=== PATIENT | male | born 1950 | race Caucasian/White ===

== ENCOUNTER 2020-05-23 09:37 | Emergency (ER) | payer MEDICARE ==
[~2020-05-23] VITALS: Ht 180.3 cm; Wt 115.2 kg
[~2020-05-23 09:37] MED LIST: ACTOS45 MG PO; ALLOPURINOL300 MG PO; FOSINOPRIL SODI10 MG PO; FOSINOPRIL SODI40 MG PO; GLIMEPIRIDE4 MG PO; JANUVIA100 MG PO; JANUVIA25 MG PO; LORTAB 10-5001 EACH PO; LOVASTATIN10 MG PO; MELOXICAM15 MG PO; TEMAZEPAM30 MG PO; TRIAMTERENE-HCTZ1 EA
[2020-05-23] MEDS ORDERED: SODIUM CHLORIDE 0.9% 1000ML 1,000 ML IV STA (10:10)
[2020-05-23 10:59] LABS: BASOPHILS % 0.3 % (0.0-1.0); EOSINOPHILS % 0.1 % (0.0-6.0); HEMATOCRIT 43.3 % (38.2-49.6); HEMOGLOBIN 14.5 g/dL (14.0-18.0); LYMPHOCYTES # (AUTO) 0.7 (1.0-3.2); LYMPHOCYTES % 4.7 % (18.0-39.1); MEAN CORPUSCULAR HEMOGLOBIN 32.4 pg (28-32); MEAN CORPUSCULAR HGB CONC 33.5 g/dL (31-35); MEAN CORPUSCULAR VOLUME 96.7 fL (81-99); MONOCYTES # (AUTO) 1.6 (0.2-0.8); MONOCYTES % 11.5 % (4.4-11.3); NEUTROPHILS # (AUTO) 11.4 (2.1-6.9); PLATELET COUNT 182 x10e3/uL (140-360); RED BLOOD COUNT 4.48 x10e6/uL (4.3-5.7); RED CELL DISTRIBUTION WIDTH 13.4 % (11.7-14.4)
[2020-05-23 11:11] LABS: CLARITY,URINE CLEAR (CLEAR); COLOR,URINE YELLOW (YELLOW); KETONES,URINE 1+ (NEGATIVE); LEUKOCYTE ESTERASE ,URINE NEGATIVE (NEGATIVE); NITRITE,URINE NEGATIVE (NEGATIVE); PROTEIN,URINE DIPSTICK 1+ (NEGATIVE)
[2020-05-23 11:12] LABS: BACTERIA,URINE RARE /HPF; EPITHELIAL CELLS,URINE FEW /LPF; RBC,URINE 0-5 /HPF (0-5); URINE UROBILINOGEN 0.2 mg/dL (0.2 - 1); WBC,URINE (MAN) 0-5 /HPF (0-5)
[2020-05-23 11:15] LABS: AMPHETAMINES SCREEN,URINE NEGATIVE (NEGATIVE); BENZODIAZEPINES SCREEN,URINE NEGATIVE (NEGATIVE); PHENCYCLIDINE SCREEN,URINE NEGATIVE (NEGATIVE)
[2020-05-23 11:20] LABS: INR 0.91; PROTHROMBIN TIME 12.8 seconds (11.9-14.5)
[2020-05-23 11:21] LABS: PARTIAL THROMBOPLASTIN TIME 29.8 seconds (23.8-35.5)
[2020-05-23 11:31] LABS: ALBUMIN 3.8 g/dL (3.5-5.0); ALBUMIN/GLOBULIN RATIO 1.2 (0.8-2.0); ANION GAP 15.5 mmol/L (8-16); CREATININE, SERUM 1.49 mg/dL (0.72-1.25); MAGNESIUM 1.5 MG/DL (1.3-2.1); POTASSIUM 3.5 mmol/L (3.5-5.1)
[2020-05-23 11:43] LABS: CREATINE KINASE MB 0.9 ng/mL (0-5.0); THYROID STIMULATING HORMONE 0.571 uIU/mL (0.350-4.940)
[2020-05-23] MEDS ORDERED: LORAZEPAM INJ 2 MG/ML VIAL IV NR (11:45)
[2020-05-23] MEDS ORDERED: THIAMINE HCL INJ 100 MG/ML 2ML VIAL IV ONE (11:45)
[2020-05-23] MEDS ORDERED: HYDROCODONE/APAP 5MG-325MG TAB PO NR (12:59)
[2020-05-23] MEDS ORDERED: TYLENOL # 31 EA PO (13:44)
== END 2020-05-23 14:28 | disposition home or self-care (01) ==
LOC: ER 09:47
DX: S63.501A Unspecified sprain of right wrist, initial encounter (principal); W01.0XXA Fall on same level from slipping, tripping and stumbling without subsequent striking against object, initial encounter; Y93.01 Activity, walking, marching and hiking; Y92.008 Other place in unspecified non-institutional (private) residence as the place of occurrence of the external cause; R25.1 Tremor, unspecified; F10.20 Alcohol dependence, uncomplicated; Z11.52 Encounter for screening for COVID-19
CPT/HCPCS: 36415; 70450; 71045; 72125; 73110; 73130; 80053; 80307; 80320; 80329; 81001; 82140; 82550; 82553; 83735; 84443; 84484; 85025; 85610; 85730; 87040; 87086; 93005; 99284; J2060; J3411; J7030; U0002

== ENCOUNTER 2022-01-17 23:54 | Inpatient (IN) | payer MEDICARE ==
[~2022-01-17] VITALS: Ht 177.8 cm; Wt 99.8 kg
[~2022-01-17 23:54] MED LIST changes: +TYLENOL # 31 EA PO
[2022-01-18] MEDS ORDERED: ONDANSETRON HCL INJ 2MG/ML 2ML 2 MG/ML VIAL IV STA (00:07)
[2022-01-18] MEDS ORDERED: ASPIRIN 81 MG CHEW TAB PO ONE (00:15)
[2022-01-18] MEDS ORDERED: MULTIVITAMINS- 12 INJECTION 10 ML, FOLIC ACID MDV 1 MG, THIAMINE HCL INJ 100 MG in SODI... IV ONE (00:15)
[2022-01-18 00:26] LABS: BASOPHILS % 0.3 % (0.0-1.0); HEMATOCRIT 39.1 % (38.2-49.6); HEMOGLOBIN 13.1 g/dL (14.0-18.0); LYMPHOCYTES # (AUTO) 0.9 (1.0-3.2); LYMPHOCYTES % 8.6 % (18.0-39.1); MEAN CORPUSCULAR HEMOGLOBIN 30.6 pg (28-32); MEAN CORPUSCULAR HGB CONC 33.5 g/dL (31-35); MEAN CORPUSCULAR VOLUME 91.4 fL (81-99); MONOCYTES # (AUTO) 1.2 (0.2-0.8); MONOCYTES % 10.6 % (4.4-11.3); NEUTROPHILS # (AUTO) 8.8 (2.1-6.9); PLATELET COUNT 92 x10e3/uL (140-360); RED BLOOD COUNT 4.28 x10e6/uL (4.3-5.7); RED CELL DISTRIBUTION WIDTH 15.1 % (11.7-14.4)
[2022-01-18 00:47] LABS: CREATINE KINASE MB 29.2 ng/mL (0-5.0)
[2022-01-18 01:02] LABS: ALBUMIN 2.8 g/dL (3.5-5.0); ALBUMIN/GLOBULIN RATIO 0.7 (0.8-2.0); ANION GAP 21.9 mmol/L (8-16); CALCIUM 8.6 mg/dL (8.4-10.2); CREATININE, SERUM 2.55 mg/dL (0.72-1.25); POTASSIUM 3.9 mmol/L (3.5-5.1)
[2022-01-18] MEDS ORDERED: ONDANSETRON HCL INJ 2MG/ML 2ML 2 MG/ML VIAL IV PRN (01:15)
[2022-01-18] MEDS ORDERED: SODIUM CHLORIDE 0.9% 1000ML 1,000 ML IV SCH (01:15)
[2022-01-18] MEDS ORDERED: SODIUM CHLORIDE 0.9% 1000ML 1,000 ML IV ONE (01:15)
[2022-01-18] MEDS ORDERED: SODIUM CHLORIDE 0.9% 1000ML 1,000 ML ONE (01:22)
[2022-01-18 02:10] VITALS: BP 144/76
[2022-01-18 07:45] LABS: CREATINE KINASE MB 24.2 ng/mL (0-5.0)
[2022-01-18 08:08] VITALS: BP 151/85
[2022-01-18 08:51] VITALS: BP 151/85
[2022-01-18] MEDS ORDERED: CHLORDIAZEPOXIDE HCL 25 MG CAP PO PRN (11:30)
[2022-01-18 11:42] VITALS: BP 157/78
[2022-01-18] MEDS: MULTIVITAMINS- 12 INJECTION 10 ML, FOLIC ACID MDV 1 MG, THIAMINE HCL INJ 100 MG in SODI... IV SCH (12:29)
[2022-01-18] MEDS: FOSINOPRIL SODIUM 10 MG TAB PO SCH (12:30)
[2022-01-18] MEDS: ACETAMINOPHEN/CODEINE 300MG - 30MG TAB PO PRN (14:10)
[2022-01-18 15:59] VITALS: BP 147/65
[2022-01-18 18:09] LABS: CREATINE KINASE MB 7.7 ng/mL (0-5.0)
[2022-01-18 20:00] VITALS: BP 137/71
[2022-01-18] MEDS: SIMVASTATIN 20 MG TAB PO SCH (21:09)
[2022-01-18] MEDS: TEMAZEPAM 15 MG CAP PO SCH (21:09)
[2022-01-19] MEDS: MULTIVITAMINS- 12 INJECTION 10 ML, FOLIC ACID MDV 1 MG, THIAMINE HCL INJ 100 MG in SODI... IV SCH ×2 (01:29→16:19)
[2022-01-19 04:00] VITALS: BP 145/77
[2022-01-19 06:17] LABS: BASOPHILS # (AUTO) 0.1 (0.0-0.1); BASOPHILS % 0.9 % (0.0-1.0); HEMATOCRIT 32.6 % (38.2-49.6); LYMPHOCYTES # (AUTO) 0.7 (1.0-3.2); LYMPHOCYTES % 8.4 % (18.0-39.1); MEAN CORPUSCULAR HEMOGLOBIN 30.3 pg (28-32); MEAN CORPUSCULAR HGB CONC 33.7 g/dL (31-35); MEAN CORPUSCULAR VOLUME 89.8 fL (81-99); MONOCYTES # (AUTO) 0.7 (0.2-0.8); MONOCYTES % 8.9 % (4.4-11.3); NEUTROPHILS # (AUTO) 6.6 (2.1-6.9); NEUTROPHILS % 80.9 % (38.7-80.0); PLATELET COUNT 86 x10e3/uL (140-360); RED BLOOD COUNT 3.63 x10e6/uL (4.3-5.7); RED CELL DISTRIBUTION WIDTH 15.9 % (11.7-14.4)
[2022-01-19 06:43] LABS: ALBUMIN 2.2 g/dL (3.5-5.0); ALBUMIN/GLOBULIN RATIO 0.7 (0.8-2.0); ANION GAP 15.5 mmol/L (8-16); CALCIUM 7.6 mg/dL (8.4-10.2); CREATININE, SERUM 1.71 mg/dL (0.72-1.25); POTASSIUM 3.5 mmol/L (3.5-5.1)
[2022-01-19 08:04] VITALS: BP 145/77
[2022-01-19 08:19] VITALS: BP 134/72
[2022-01-19] MEDS: SITAGLIPTIN 100 MG TAB PO SCH (09:29)
[2022-01-19] MEDS: FOSINOPRIL SODIUM 10 MG TAB PO SCH (09:30)
[2022-01-19] MEDS ORDERED: ONDANSETRON HCL 4 MG ORAL DISINTEGRATING TAB PO PRN (11:15)
[2022-01-19 11:49] VITALS: BP 106/95
[2022-01-19 15:52] VITALS: BP 102/52
[2022-01-19 20:00] VITALS: BP 102/60
[2022-01-19] MEDS: CHLORDIAZEPOXIDE HCL 25 MG CAP PO SCH (20:25)
[2022-01-19] MEDS: SIMVASTATIN 20 MG TAB PO SCH (20:25)
[2022-01-19] MEDS: TEMAZEPAM 15 MG CAP PO SCH (20:25)
[2022-01-20] VITALS (8 sets, daily range): BP systolic 98–140; BP diastolic 52–72
[2022-01-20] MEDS: MULTIVITAMINS- 12 INJECTION 10 ML, FOLIC ACID MDV 1 MG, THIAMINE HCL INJ 100 MG in SODI... IV SCH (04:27)
[2022-01-20] MEDS: FOSINOPRIL SODIUM 10 MG TAB PO SCH (08:49)
[2022-01-20] MEDS: CHLORDIAZEPOXIDE HCL 25 MG CAP PO SCH ×2 (08:49→21:18)
[2022-01-20] MEDS: SITAGLIPTIN 100 MG TAB PO SCH (08:50)
[2022-01-20] MEDS ORDERED: FUROSEMIDE INJ 10 MG/ML 4 ML VIAL IV ONE (10:30)
[2022-01-20 10:53] LABS: MAGNESIUM 1.8 MG/DL (1.3-2.1)
[2022-01-20] MEDS: ACETAMINOPHEN/CODEINE 300MG - 30MG TAB PO PRN (17:21)
[2022-01-20] MEDS: TEMAZEPAM 15 MG CAP PO SCH (21:16)
[2022-01-20] MEDS: SIMVASTATIN 20 MG TAB PO SCH (21:17)
[2022-01-21] VITALS (8 sets, daily range): BP systolic 92–135; BP diastolic 56–71
[2022-01-21] MEDS: ACETAMINOPHEN/CODEINE 300MG - 30MG TAB PO PRN (04:52)
[2022-01-21 07:48] LABS: BASOPHILS # (AUTO) 0.1 (0.0-0.1); EOSINOPHILS % 0.8 % (0.0-6.0); HEMATOCRIT 32.2 % (38.2-49.6); LYMPHOCYTES % 19.9 % (18.0-39.1); MEAN CORPUSCULAR HEMOGLOBIN 30.3 pg (28-32); MEAN CORPUSCULAR HGB CONC 34.2 g/dL (31-35); MEAN CORPUSCULAR VOLUME 88.7 fL (81-99); MONOCYTES # (AUTO) 0.5 (0.2-0.8); MONOCYTES % 9.3 % (4.4-11.3); NEUTROPHILS # (AUTO) 3.5 (2.1-6.9); NEUTROPHILS % 68.2 % (38.7-80.0); PLATELET COUNT 109 x10e3/uL (140-360); RED BLOOD COUNT 3.63 x10e6/uL (4.3-5.7); RED CELL DISTRIBUTION WIDTH 15.9 % (11.7-14.4)
[2022-01-21 08:10] LABS: ANION GAP 13.4 mmol/L (8-16); CALCIUM 7.9 mg/dL (8.4-10.2); CREATININE, SERUM 1.16 mg/dL (0.72-1.25); POTASSIUM 3.4 mmol/L (3.5-5.1)
[2022-01-21] MEDS: FOSINOPRIL SODIUM 10 MG TAB PO SCH (09:00)
[2022-01-21] MEDS: CHLORDIAZEPOXIDE HCL 25 MG CAP PO SCH ×2 (09:00→21:24)
[2022-01-21] MEDS: SITAGLIPTIN 100 MG TAB PO SCH (09:31)
[2022-01-21] MEDS: ACETAMINOPHEN 325 MG TAB PO PRN (17:30)
[2022-01-21] MEDS: SIMVASTATIN 20 MG TAB PO SCH (21:24)
[2022-01-21] MEDS: TEMAZEPAM 15 MG CAP PO SCH (21:24)
[2022-01-22] VITALS (8 sets, daily range): BP systolic 95–140; BP diastolic 50–77
[2022-01-22 05:53] LABS: BASOPHILS # (AUTO) 0.1 (0.0-0.1); BASOPHILS % 1.2 % (0.0-1.0); EOSINOPHILS % 0.4 % (0.0-6.0); HEMATOCRIT 37.5 % (38.2-49.6); LYMPHOCYTES % 29.5 % (18.0-39.1); MEAN CORPUSCULAR HEMOGLOBIN 29.9 pg (28-32); MEAN CORPUSCULAR VOLUME 93.5 fL (81-99); MONOCYTES # (AUTO) 0.9 (0.2-0.8); MONOCYTES % 12.9 % (4.4-11.3); NEUTROPHILS # (AUTO) 3.8 (2.1-6.9); NEUTROPHILS % 55.6 % (38.7-80.0); PLATELET COUNT 150 x10e3/uL (140-360); RED BLOOD COUNT 4.01 x10e6/uL (4.3-5.7); RED CELL DISTRIBUTION WIDTH 15.9 % (11.7-14.4)
[2022-01-22 06:14] LABS: ANION GAP 15.6 mmol/L (8-16); CALCIUM 8.2 mg/dL (8.4-10.2); CREATININE, SERUM 0.96 mg/dL (0.72-1.25); POTASSIUM 3.6 mmol/L (3.5-5.1)
[2022-01-22] MEDS: CHLORDIAZEPOXIDE HCL 25 MG CAP PO SCH ×2 (09:00→22:12)
[2022-01-22] MEDS: FOSINOPRIL SODIUM 10 MG TAB PO SCH (09:00)
[2022-01-22] MEDS: PANTOPRAZOLE SOD 40 MG TABEC PO SCH (09:05)
[2022-01-22] MEDS: SITAGLIPTIN 100 MG TAB PO SCH (09:05)
[2022-01-22 09:30] LABS: BAND NEUTROPHILS % (MANUAL) 1 %; EOSINOPHILS % (MANUAL) 2 % (0-7); LYMPHOCYTES % (MANUAL) 28 % (19-48); MONOCYTES % (MANUAL) 6 % (3.4-9.0); NEUTROPHILS % (MANUAL) 60 % (40-74)
[2022-01-22 09:33] LABS: PLATELET ESTIMATE ADEQUATE; PLATELET MORPHOLOGY COMMENT NORMAL; RBC MORPHOLOGY COMMENT NORMAL
[2022-01-22] MEDS: ACETAMINOPHEN 325 MG TAB PO PRN (16:23)
[2022-01-22] MEDS: TEMAZEPAM 15 MG CAP PO SCH (22:12)
[2022-01-22] MEDS: SIMVASTATIN 20 MG TAB PO SCH (22:12)
[2022-01-23] MEDS: ACETAMINOPHEN/CODEINE 300MG - 30MG TAB PO PRN ×2 (03:54→14:22)
[2022-01-23 07:26] LABS: BASOPHILS # (AUTO) 0.1 (0.0-0.1); EOSINOPHILS % 0.3 % (0.0-6.0); HEMATOCRIT 36.5 % (38.2-49.6); HEMOGLOBIN 11.9 g/dL (14.0-18.0); LYMPHOCYTES # (AUTO) 2.8 (1.0-3.2); LYMPHOCYTES % 36.3 % (18.0-39.1); MEAN CORPUSCULAR HEMOGLOBIN 30.5 pg (28-32); MEAN CORPUSCULAR HGB CONC 32.6 g/dL (31-35); MEAN CORPUSCULAR VOLUME 93.6 fL (81-99); MONOCYTES % 13.2 % (4.4-11.3); NEUTROPHILS # (AUTO) 3.8 (2.1-6.9); NEUTROPHILS % 48.7 % (38.7-80.0); PLATELET COUNT 183 x10e3/uL (140-360); RED CELL DISTRIBUTION WIDTH 16.2 % (11.7-14.4)
[2022-01-23 07:50] LABS: ALBUMIN 2.1 g/dL (3.5-5.0); ALBUMIN/GLOBULIN RATIO 0.6 (0.8-2.0); ANION GAP 15.4 mmol/L (8-16); CALCIUM 8.4 mg/dL (8.4-10.2); CREATININE, SERUM 1.03 mg/dL (0.72-1.25); POTASSIUM 3.4 mmol/L (3.5-5.1)
[2022-01-23 07:54] VITALS: BP 120/69
[2022-01-23 08:00] VITALS: BP 120/69
[2022-01-23 08:37] LABS: LYMPHOCYTES % (MANUAL) 22 % (19-48); MONOCYTES % (MANUAL) 12 % (3.4-9.0); NEUTROPHILS % (MANUAL) 65 % (40-74); PLATELET ESTIMATE ADEQUATE; PLATELET MORPHOLOGY COMMENT NORMAL; RBC MORPHOLOGY COMMENT NORMAL
[2022-01-23] MEDS: CHLORDIAZEPOXIDE HCL 25 MG CAP PO SCH ×2 (08:58→21:15)
[2022-01-23] MEDS: PANTOPRAZOLE SOD 40 MG TABEC PO SCH (08:59)
[2022-01-23] MEDS: SITAGLIPTIN 100 MG TAB PO SCH (08:59)
[2022-01-23] MEDS: FOSINOPRIL SODIUM 10 MG TAB PO SCH (08:59)
[2022-01-23 11:22] VITALS: BP 150/81
[2022-01-23] MEDS: ACETAMINOPHEN 325 MG TAB PO PRN (14:23)
[2022-01-23 15:30] VITALS: BP 135/68
[2022-01-23] MEDS ORDERED: POTASSIUM CHLORIDE 10MEQ EA PO ONE (17:45)
[2022-01-23 19:30] VITALS: BP 131/71
[2022-01-23 20:00] VITALS: BP 131/71
[2022-01-23] MEDS: TEMAZEPAM 15 MG CAP PO SCH (21:15)
[2022-01-23] MEDS: SIMVASTATIN 20 MG TAB PO SCH (21:16)
[2022-01-24] VITALS (7 sets, daily range): BP systolic 105–161; BP diastolic 50–82
[2022-01-24 05:50] LABS: BASOPHILS % 0.5 % (0.0-1.0); EOSINOPHILS % 0.5 % (0.0-6.0); HEMATOCRIT 33.7 % (38.2-49.6); HEMOGLOBIN 10.9 g/dL (14.0-18.0); LYMPHOCYTES # (AUTO) 2.6 (1.0-3.2); LYMPHOCYTES % 35.1 % (18.0-39.1); MEAN CORPUSCULAR HEMOGLOBIN 29.7 pg (28-32); MEAN CORPUSCULAR HGB CONC 32.3 g/dL (31-35); MEAN CORPUSCULAR VOLUME 91.8 fL (81-99); MONOCYTES % 13.3 % (4.4-11.3); NEUTROPHILS # (AUTO) 3.8 (2.1-6.9); NEUTROPHILS % 50.1 % (38.7-80.0); PLATELET COUNT 223 x10e3/uL (140-360); RED BLOOD COUNT 3.67 x10e6/uL (4.3-5.7); RED CELL DISTRIBUTION WIDTH 16.1 % (11.7-14.4)
[2022-01-24 06:14] LABS: ANION GAP 13.8 mmol/L (8-16); CALCIUM 8.5 mg/dL (8.4-10.2); CREATININE, SERUM 0.98 mg/dL (0.72-1.25); POTASSIUM 3.8 mmol/L (3.5-5.1)
[2022-01-24 08:49] LABS: LYMPHOCYTES % (MANUAL) 31 % (19-48); NEUTROPHILS % (MANUAL) 50 % (40-74)
[2022-01-24 08:50] LABS: MONOCYTES % (MANUAL) 14 % (3.4-9.0); PLATELET ESTIMATE ADEQUATE; PLATELET MORPHOLOGY COMMENT NORMAL; RBC MORPHOLOGY COMMENT NORMAL
[2022-01-24] MEDS: CHLORDIAZEPOXIDE HCL 25 MG CAP PO SCH ×2 (09:25→20:53)
[2022-01-24] MEDS: PANTOPRAZOLE SOD 40 MG TABEC PO SCH (09:25)
[2022-01-24] MEDS: SITAGLIPTIN 100 MG TAB PO SCH (09:25)
[2022-01-24] MEDS: FOSINOPRIL SODIUM 10 MG TAB PO SCH (09:26)
[2022-01-24] MEDS: TEMAZEPAM 15 MG CAP PO SCH (20:52)
[2022-01-24] MEDS: SIMVASTATIN 20 MG TAB PO SCH (20:53)
[2022-01-25] VITALS (9 sets, daily range): BP systolic 101–142; BP diastolic 64–79
[2022-01-25] MEDS: CHLORDIAZEPOXIDE HCL 25 MG CAP PO SCH ×2 (08:35→21:06)
[2022-01-25] MEDS: SITAGLIPTIN 100 MG TAB PO SCH (08:36)
[2022-01-25] MEDS: PANTOPRAZOLE SOD 40 MG TABEC PO SCH (08:36)
[2022-01-25] MEDS: FOSINOPRIL SODIUM 10 MG TAB PO SCH (08:36)
[2022-01-25] MEDS: TEMAZEPAM 15 MG CAP PO SCH (21:06)
[2022-01-25] MEDS: SIMVASTATIN 20 MG TAB PO SCH (21:06)
[2022-01-26 07:23] VITALS: BP 118/60
[2022-01-26 08:00] VITALS: BP 118/60
[2022-01-26] MEDS: FOSINOPRIL SODIUM 10 MG TAB PO SCH (09:00)
[2022-01-26] MEDS: CHLORDIAZEPOXIDE HCL 25 MG CAP PO SCH (09:00)
[2022-01-26] MEDS: SITAGLIPTIN 100 MG TAB PO SCH (09:31)
[2022-01-26] MEDS: PANTOPRAZOLE SOD 40 MG TABEC PO SCH (09:32)
[2022-01-26 11:25] VITALS: BP 115/74
[2022-01-26 15:24] VITALS: BP 129/70
[2022-01-26 20:00] VITALS: BP 157/75
[2022-01-26] MEDS: TEMAZEPAM 15 MG CAP PO SCH (20:29)
[2022-01-26] MEDS: SIMVASTATIN 20 MG TAB PO SCH (20:30)
[2022-01-26 21:30] VITALS: BP 157/75
[2022-01-27] VITALS (7 sets, daily range): BP systolic 130–154; BP diastolic 63–79
[2022-01-27] MEDS: SITAGLIPTIN 100 MG TAB PO SCH (09:23)
[2022-01-27] MEDS: PANTOPRAZOLE SOD 40 MG TABEC PO SCH (09:23)
[2022-01-27] MEDS: FOSINOPRIL SODIUM 10 MG TAB PO SCH (09:23)
[2022-01-27] MEDS: TEMAZEPAM 15 MG CAP PO SCH (21:24)
[2022-01-27] MEDS: SIMVASTATIN 20 MG TAB PO SCH (21:24)
[2022-01-28] VITALS (8 sets, daily range): BP systolic 116–148; BP diastolic 70–89
[2022-01-28] MEDS: PANTOPRAZOLE SOD 40 MG TABEC PO SCH (09:28)
[2022-01-28] MEDS: SITAGLIPTIN 100 MG TAB PO SCH (09:29)
[2022-01-28] MEDS: FOSINOPRIL SODIUM 10 MG TAB PO SCH (09:29)
[2022-01-28] MEDS: SIMVASTATIN 20 MG TAB PO SCH (20:57)
[2022-01-28] MEDS: TEMAZEPAM 15 MG CAP PO SCH (20:57)
[2022-01-29] VITALS (7 sets, daily range): BP systolic 123–153; BP diastolic 63–81
[2022-01-29 05:36] LABS: BASOPHILS % 0.6 % (0.0-1.0); EOSINOPHILS % 0.5 % (0.0-6.0); HEMATOCRIT 36.3 % (38.2-49.6); HEMOGLOBIN 11.1 g/dL (14.0-18.0); LYMPHOCYTES % 31.4 % (18.0-39.1); MEAN CORPUSCULAR HEMOGLOBIN 29.9 pg (28-32); MEAN CORPUSCULAR HGB CONC 30.6 g/dL (31-35); MEAN CORPUSCULAR VOLUME 97.8 fL (81-99); MONOCYTES # (AUTO) 0.5 (0.2-0.8); MONOCYTES % 8.6 % (4.4-11.3); NEUTROPHILS # (AUTO) 3.7 (2.1-6.9); NEUTROPHILS % 58.4 % (38.7-80.0); PLATELET COUNT 321 x10e3/uL (140-360); RED BLOOD COUNT 3.71 x10e6/uL (4.3-5.7); RED CELL DISTRIBUTION WIDTH 15.9 % (11.7-14.4)
[2022-01-29 06:02] LABS: ANION GAP 18.7 mmol/L (8-16); CALCIUM 8.9 mg/dL (8.4-10.2); CREATININE, SERUM 1.02 mg/dL (0.72-1.25); POTASSIUM 3.7 mmol/L (3.5-5.1)
[2022-01-29] MEDS: FOSINOPRIL SODIUM 10 MG TAB PO SCH (08:37)
[2022-01-29] MEDS: SITAGLIPTIN 100 MG TAB PO SCH (08:37)
[2022-01-29] MEDS: PANTOPRAZOLE SOD 40 MG TABEC PO SCH (08:37)
[2022-01-29] MEDS: SIMVASTATIN 20 MG TAB PO SCH (20:42)
[2022-01-29] MEDS: TEMAZEPAM 15 MG CAP PO SCH (20:42)
[2022-01-30 01:16] VITALS: BP 155/67
[2022-01-30 04:53] VITALS: BP 136/65
[2022-01-30 07:22] VITALS: BP 127/69
[2022-01-30 08:13] VITALS: BP 127/69
[2022-01-30] MEDS: SITAGLIPTIN 100 MG TAB PO SCH (08:17)
[2022-01-30] MEDS: PANTOPRAZOLE SOD 40 MG TABEC PO SCH (08:17)
[2022-01-30] MEDS: FOSINOPRIL SODIUM 10 MG TAB PO SCH (08:17)
[2022-01-30 11:25] VITALS: BP 135/74
[2022-01-30 15:24] VITALS: BP 126/81
== END 2022-01-30 18:28 | DRG 558 ==
LOC: ER 01-18 00:15 → ERHOLD 01-18 01:15 → MED/SURG3 01-18 02:06 → MED/SURG2 01-20 12:11
DX: M62.82 Rhabdomyolysis (principal); F10.230 Alcohol dependence with withdrawal, uncomplicated; N17.9 Acute kidney failure, unspecified; Y90.0 Blood alcohol level of less than 20 mg/100 ml; Z20.822 Contact with and (suspected) exposure to COVID-19; I12.9 Hypertensive chronic kidney disease with stage 1 through stage 4 chronic kidney disease, or unspecified chronic kidney disease; N18.2 Chronic kidney disease, stage 2 (mild)
CPT/HCPCS: 36415; 70450; 71045; 80048; 80053; 80320; 82140; 82550; 82553; 82948; 83690; 83735; 84484; 85025; 87040; 87086; 93005; 94799; 96361; 99284; J1940; J2405; J3411; J7030; Q0162

== ENCOUNTER 2022-02-23 12:57 | Inpatient (IN) | payer MEDICARE ==
[~2022-02-23] VITALS: Ht 177.8 cm; Wt 122.5 kg
[2022-02-23 13:49] LABS: BASOPHILS # (AUTO) 0.1 (0.0-0.1); BASOPHILS % 0.8 % (0.0-1.0); EOSINOPHILS # (AUTO) 0.2 (0.0-0.4); EOSINOPHILS % 2.4 % (0.0-6.0); HEMATOCRIT 39.2 % (38.2-49.6); HEMOGLOBIN 11.8 g/dL (14.0-18.0); LYMPHOCYTES # (AUTO) 1.4 (1.0-3.2); LYMPHOCYTES % 20.7 % (18.0-39.1); MEAN CORPUSCULAR HEMOGLOBIN 29.9 pg (28-32); MEAN CORPUSCULAR HGB CONC 30.1 g/dL (31-35); MEAN CORPUSCULAR VOLUME 99.5 fL (81-99); MONOCYTES # (AUTO) 0.7 (0.2-0.8); MONOCYTES % 10.7 % (4.4-11.3); NEUTROPHILS # (AUTO) 4.3 (2.1-6.9); NEUTROPHILS % 65.1 % (38.7-80.0); PLATELET COUNT 187 x10e3/uL (140-360); RED BLOOD COUNT 3.94 x10e6/uL (4.3-5.7); RED CELL DISTRIBUTION WIDTH 16.1 % (11.7-14.4)
[2022-02-23 13:53] LABS: INR 0.89; PROTHROMBIN TIME 12.9 seconds (11.9-14.5)
[2022-02-23 13:54] LABS: CLARITY,URINE CLEAR (CLEAR); COLOR,URINE YELLOW (YELLOW)
[2022-02-23 13:55] LABS: KETONES,URINE TRACE (NEGATIVE); LEUKOCYTE ESTERASE ,URINE NEGATIVE (NEGATIVE); NITRITE,URINE NEGATIVE (NEGATIVE); PROTEIN,URINE DIPSTICK NEGATIVE (NEGATIVE); URINE UROBILINOGEN 0.2 mg/dL (0.2 - 1)
[2022-02-23 14:03] LABS: WBC,URINE (MAN) 0-5 /HPF (0-5)
[2022-02-23 14:04] LABS: ALANINE AMINOTRANSFERASE 13 IU/L (0-55); ALBUMIN 3.3 g/dL (3.5-5.0); ALBUMIN/GLOBULIN RATIO 0.9 (0.8-2.0); ALKALINE PHOSPHATASE 87 IU/L (40-150); ANION GAP 20.1 mmol/L (8-16); BACTERIA,URINE FEW /HPF; BLOOD UREA NITROGEN 26 mg/dL (7-26); BUN/CREATININE RATIO 15 (6-25); CALCIUM 9.9 mg/dL (8.4-10.2); CARBON DIOXIDE 22 mmol/L (22-29); CHLORIDE 112 mmol/L (98-107); CREATINE KINASE 48 IU/L (30-200); CREATININE, SERUM 1.78 mg/dL (0.72-1.25); EPITHELIAL CELLS,URINE MODERATE /LPF; GLUCOSE 109 mg/dL (74-118); LIPASE 95 U/L (8-78); MAGNESIUM 2.1 MG/DL (1.3-2.1); POTASSIUM 5.1 mmol/L (3.5-5.1); RBC,URINE 0-5 /HPF (0-5); SODIUM 149 mmol/L (136-145)
[2022-02-23 14:13] LABS: B-TYPE NATRIURETIC PEPTIDE2 73.2 pg/mL (0-100)
[2022-02-23] MEDS ORDERED: SODIUM CHLORIDE 0.9% 1000ML 1,000 ML IV SCH (14:30)
[2022-02-23] MEDS: DEXTROSE 5% 1,000 ML IV SCH (14:45)
[2022-02-23] MEDS ORDERED: LACTULOSE SYRUP 20 GM/30 ML UDC PO ONE (14:45)
[2022-02-23 14:55] LABS: ABG PH 7.41 (7.35-7.45)
[2022-02-23 14:56] LABS: ABG HCO3 26 mmol/L (22-26); ABG PCO2 41 mmHg (35-45); ABG PO2 117 mmHg (80-105); ABG TCO2 27
[2022-02-23] MEDS ORDERED: DEXTROSE 5% 1,000 ML IV ONE (15:45)
[2022-02-23] MEDS ORDERED: ONDANSETRON HCL INJ 2MG/ML 2ML 2 MG/ML VIAL IV PRN (18:45)
[2022-02-23] MEDS ORDERED: DEXTROSE 50% SYRINGE 50 ML IV PRN (19:00)
[2022-02-23] MEDS: INSULIN LISPRO 100 UNIT/1 ML 3ML VIAL SQ SCH (21:00)
[2022-02-23 23:50] VITALS: BP 98/47
[2022-02-24] VITALS (7 sets, daily range): BP systolic 81–119; BP diastolic 45–68
[2022-02-24] MEDS: DEXTROSE 5% 1,000 ML IV SCH ×2 (00:09→15:31)
[2022-02-24 05:47] LABS: BASOPHILS % 0.5 % (0.0-1.0); EOSINOPHILS # (AUTO) 0.1 (0.0-0.4); EOSINOPHILS % 1.3 % (0.0-6.0); HEMOGLOBIN 10.7 g/dL (14.0-18.0); LYMPHOCYTES # (AUTO) 1.2 (1.0-3.2); LYMPHOCYTES % 15.2 % (18.0-39.1); MEAN CORPUSCULAR HEMOGLOBIN 30.4 pg (28-32); MEAN CORPUSCULAR HGB CONC 32.4 g/dL (31-35); MEAN CORPUSCULAR VOLUME 93.8 fL (81-99); MONOCYTES % 12.4 % (4.4-11.3); NEUTROPHILS # (AUTO) 5.7 (2.1-6.9); NEUTROPHILS % 70.2 % (38.7-80.0); PLATELET COUNT 173 x10e3/uL (140-360); RED BLOOD COUNT 3.52 x10e6/uL (4.3-5.7)
[2022-02-24 06:04] LABS: ALBUMIN 2.9 g/dL (3.5-5.0); ALBUMIN/GLOBULIN RATIO 0.9 (0.8-2.0); ANION GAP 13.9 mmol/L (8-16); CALCIUM 9.1 mg/dL (8.4-10.2); CREATININE, SERUM 1.7 mg/dL (0.72-1.25); MAGNESIUM 1.5 MG/DL (1.3-2.1); POTASSIUM 3.9 mmol/L (3.5-5.1)
[2022-02-24 06:06] LABS: AMYLASE 51 U/L (25-125); LIPASE 39 U/L (8-78)
[2022-02-24 06:27] LABS: FERRITIN 125.13 ng/mL (21.81-274.66)
[2022-02-24 06:30] LABS: THYROID STIMULATING HORMONE 0.525 uIU/mL (0.350-4.940)
[2022-02-24] MEDS: INSULIN LISPRO 100 UNIT/1 ML 3ML VIAL SQ SCH ×4 (07:30→22:51)
[2022-02-24] MEDS ORDERED: LACTULOSE SYRUP 20 GM/30 ML UDC PO PRN (08:45)
[2022-02-24] MEDS: DOCUSATE SODIUM 100 MG CAP PO SCH (09:00)
[2022-02-24] MEDS: SENNOSIDES 8.6 MG TAB PO SCH (09:00)
[2022-02-24] MEDS ORDERED: SODIUM CHLORIDE 0.9% 1000ML 1,000 ML IV STA (10:39)
[2022-02-24] MEDS ORDERED: MAGNESIUM SULFATE 2GM/50ML 50 ML IV ONE (11:15)
[2022-02-24] MEDS: IRON SUCROSE 100 MG in SODIUM CHLORIDE 0.9% 100 ML IV SCH (12:42)
[2022-02-24 16:05] LABS: AMPHETAMINES SCREEN,URINE NEGATIVE (NEGATIVE); PHENCYCLIDINE SCREEN,URINE NEGATIVE (NEGATIVE)
[2022-02-24 16:11] LABS: BENZODIAZEPINES SCREEN,URINE POSITIVE (NEGATIVE)
[2022-02-24] MEDS: ENOXAPARIN SOD INJ 40 MG/0.4 ML SYR SC SCH (16:51)
[2022-02-25] VITALS (8 sets, daily range): BP systolic 80–115; BP diastolic 46–60
[2022-02-25 06:12] LABS: ALBUMIN 2.4 g/dL (3.5-5.0); ALBUMIN/GLOBULIN RATIO 0.8 (0.8-2.0); ANION GAP 13.9 mmol/L (8-16); CALCIUM 8.1 mg/dL (8.4-10.2); CREATININE, SERUM 1.91 mg/dL (0.72-1.25); POTASSIUM 3.9 mmol/L (3.5-5.1)
[2022-02-25] MEDS: INSULIN LISPRO 100 UNIT/1 ML 3ML VIAL SQ SCH ×4 (07:30→21:00)
[2022-02-25] MEDS: DOCUSATE SODIUM 100 MG CAP PO SCH (09:00)
[2022-02-25] MEDS: FOLIC ACID 1 MG TAB PO SCH (09:00)
[2022-02-25] MEDS: SENNOSIDES 8.6 MG TAB PO SCH (09:00)
[2022-02-25] MEDS ORDERED: DEXTROSE 5% 1,000 ML IV ONE (09:15)
[2022-02-25] MEDS ORDERED: SODIUM CHLORIDE 0.9% 250ML 250 ML IV ONE (10:30)
[2022-02-25] MEDS: SODIUM CHLORIDE 0.9% 1000ML 1,000 ML IV SCH ×3 (12:06→21:15)
[2022-02-25] MEDS: IRON SUCROSE 100 MG in SODIUM CHLORIDE 0.9% 100 ML IV SCH (13:05)
[2022-02-25] MEDS: ENOXAPARIN SOD INJ 40 MG/0.4 ML SYR SC SCH (17:33)
[2022-02-26] VITALS (8 sets, daily range): BP systolic 98–140; BP diastolic 54–95
[2022-02-26] MEDS: SODIUM CHLORIDE 0.9% 1000ML 1,000 ML IV SCH ×2 (03:13→07:05)
[2022-02-26 06:14] LABS: BASOPHILS % 0.9 % (0.0-1.0); EOSINOPHILS # (AUTO) 0.1 (0.0-0.4); EOSINOPHILS % 2.7 % (0.0-6.0); HEMATOCRIT 30.4 % (38.2-49.6); HEMOGLOBIN 9.5 g/dL (14.0-18.0); LYMPHOCYTES # (AUTO) 1.2 (1.0-3.2); LYMPHOCYTES % 25.6 % (18.0-39.1); MEAN CORPUSCULAR HEMOGLOBIN 30.1 pg (28-32); MEAN CORPUSCULAR HGB CONC 31.3 g/dL (31-35); MEAN CORPUSCULAR VOLUME 96.2 fL (81-99); MONOCYTES # (AUTO) 0.6 (0.2-0.8); MONOCYTES % 14.2 % (4.4-11.3); NEUTROPHILS # (AUTO) 2.5 (2.1-6.9); NEUTROPHILS % 56.2 % (38.7-80.0); PLATELET COUNT 112 x10e3/uL (140-360); RED BLOOD COUNT 3.16 x10e6/uL (4.3-5.7); RED CELL DISTRIBUTION WIDTH 15.5 % (11.7-14.4)
[2022-02-26] MEDS ORDERED: DEXTROSE 5%/0.45% SOD CHL 1,000 ML IV SCH (06:15)
[2022-02-26] MEDS ORDERED: SODIUM CHLORIDE 0.9% 1000ML 1,000 ML IV SCH (06:30)
[2022-02-26 06:34] LABS: ALBUMIN 2.2 g/dL (3.5-5.0); ALBUMIN/GLOBULIN RATIO 0.7 (0.8-2.0); ANION GAP 12.8 mmol/L (8-16); CREATININE, SERUM 1.11 mg/dL (0.72-1.25); MAGNESIUM 1.7 MG/DL (1.3-2.1); POTASSIUM 3.8 mmol/L (3.5-5.1)
[2022-02-26] MEDS: INSULIN LISPRO 100 UNIT/1 ML 3ML VIAL SQ SCH ×4 (07:30→21:00)
[2022-02-26] MEDS: FOLIC ACID 1 MG TAB PO SCH (09:00)
[2022-02-26] MEDS: DOCUSATE SODIUM 100 MG CAP PO SCH (09:00)
[2022-02-26] MEDS: SENNOSIDES 8.6 MG TAB PO SCH (09:00)
[2022-02-26] MEDS ORDERED: DEXTROSE 5%/0.45% SOD CHL 1,000 ML IV ONE (11:30)
[2022-02-26] MEDS: IRON SUCROSE 100 MG in SODIUM CHLORIDE 0.9% 100 ML IV SCH (13:28)
[2022-02-26] MEDS: ENOXAPARIN SOD INJ 40 MG/0.4 ML SYR SC SCH (16:55)
[2022-02-26] MEDS: ZIPRASIDONE 20 MG VIAL IM PRN (22:57)
[2022-02-27] VITALS (8 sets, daily range): BP systolic 115–147; BP diastolic 56–83
[2022-02-27 06:19] LABS: BASOPHILS % 0.5 % (0.0-1.0); EOSINOPHILS # (AUTO) 0.3 (0.0-0.4); EOSINOPHILS % 6.7 % (0.0-6.0); HEMATOCRIT 31.3 % (38.2-49.6); HEMOGLOBIN 10.3 g/dL (14.0-18.0); LYMPHOCYTES % 25.1 % (18.0-39.1); MEAN CORPUSCULAR HEMOGLOBIN 30.4 pg (28-32); MEAN CORPUSCULAR HGB CONC 32.9 g/dL (31-35); MEAN CORPUSCULAR VOLUME 92.3 fL (81-99); MONOCYTES # (AUTO) 0.5 (0.2-0.8); MONOCYTES % 12.7 % (4.4-11.3); NEUTROPHILS # (AUTO) 2.2 (2.1-6.9); NEUTROPHILS % 54.5 % (38.7-80.0); PLATELET COUNT 150 x10e3/uL (140-360); RED BLOOD COUNT 3.39 x10e6/uL (4.3-5.7); RED CELL DISTRIBUTION WIDTH 14.6 % (11.7-14.4)
[2022-02-27 06:43] LABS: ALBUMIN 2.4 g/dL (3.5-5.0); ALBUMIN/GLOBULIN RATIO 0.7 (0.8-2.0); ANION GAP 14.4 mmol/L (8-16); CALCIUM 8.4 mg/dL (8.4-10.2); CREATININE, SERUM 0.89 mg/dL (0.72-1.25); MAGNESIUM 1.6 MG/DL (1.3-2.1); POTASSIUM 3.4 mmol/L (3.5-5.1)
[2022-02-27] MEDS: INSULIN LISPRO 100 UNIT/1 ML 3ML VIAL SQ SCH ×4 (07:30→19:57)
[2022-02-27] MEDS ORDERED: POTASSIUM CHLORIDE 20 MEQ TAB CR PO ONE (08:30)
[2022-02-27] MEDS: MAGNESIUM SULFATE 2GM/50ML 50 ML IV SCH ×2 (08:59→11:58)
[2022-02-27] MEDS: SENNOSIDES 8.6 MG TAB PO SCH (09:00)
[2022-02-27] MEDS: DOCUSATE SODIUM 100 MG CAP PO SCH (09:00)
[2022-02-27] MEDS: FOLIC ACID 1 MG TAB PO SCH (09:00)
[2022-02-27] MEDS ORDERED: MAGNESIUM SULFATE 2GM/50ML 50 ML IV ONE (12:15)
[2022-02-27] MEDS ORDERED: POTASSIUM CHLORIDE 20MEQ/100ML 200 ML IV ONE (12:15)
[2022-02-27] MEDS: POTASSIUM CHLORIDE 20MEQ/100ML 100 ML IV SCH ×2 (15:52→18:00)
[2022-02-27] MEDS: ENOXAPARIN SOD INJ 40 MG/0.4 ML SYR SC SCH (17:38)
[2022-02-27] MEDS: QUETIAPINE FUMARATE 25 MG TAB PO SCH (19:56)
[2022-02-27] MEDS: IRON SUCROSE 100 MG in SODIUM CHLORIDE 0.9% 100 ML IV SCH (23:35)
[2022-02-28] MEDS: ZIPRASIDONE 20 MG VIAL IM PRN (02:12)
[2022-02-28 05:49] LABS: ANION GAP 13.6 mmol/L (8-16); CALCIUM 8.2 mg/dL (8.4-10.2); CREATININE, SERUM 0.92 mg/dL (0.72-1.25); MAGNESIUM 2.1 MG/DL (1.3-2.1); POTASSIUM 3.6 mmol/L (3.5-5.1)
[2022-02-28 06:16] VITALS: BP 121/62
[2022-02-28] MEDS: INSULIN LISPRO 100 UNIT/1 ML 3ML VIAL SQ SCH ×4 (07:27→21:00)
[2022-02-28 07:28] VITALS: BP 118/56
[2022-02-28 08:29] VITALS: BP 118/56
[2022-02-28] MEDS: FOLIC ACID 1 MG TAB PO SCH ×2 (08:43→09:00)
[2022-02-28] MEDS: SENNOSIDES 8.6 MG TAB PO SCH ×2 (08:43→09:00)
[2022-02-28] MEDS: DOCUSATE SODIUM 100 MG CAP PO SCH ×2 (08:43→09:00)
[2022-02-28] MEDS ORDERED: ONDANSETRON HCL 4 MG ORAL DISINTEGRATING TAB PO PRN (11:15)
[2022-02-28] MEDS: IRON SUCROSE 100 MG in SODIUM CHLORIDE 0.9% 100 ML IV SCH (11:26)
[2022-02-28] MEDS ORDERED: SODIUM CHLORIDE 0.9% 250ML 250 ML ONE (11:31)
[2022-02-28 12:33] VITALS: BP 126/66
[2022-02-28 16:19] VITALS: BP 112/61
[2022-02-28] MEDS: ENOXAPARIN SOD INJ 40 MG/0.4 ML SYR SC SCH (17:54)
[2022-02-28] MEDS: QUETIAPINE FUMARATE 25 MG TAB PO SCH (19:54)
[2022-02-28 20:00] VITALS: BP 119/57
[2022-03-01] VITALS (9 sets, daily range): BP systolic 101–159; BP diastolic 45–72
[2022-03-01] MEDS: INSULIN LISPRO 100 UNIT/1 ML 3ML VIAL SQ SCH ×4 (08:09→21:00)
[2022-03-01] MEDS: SENNOSIDES 8.6 MG TAB PO SCH (08:34)
[2022-03-01] MEDS: DOCUSATE SODIUM 100 MG CAP PO SCH (08:34)
[2022-03-01] MEDS: FOLIC ACID 1 MG TAB PO SCH (08:34)
[2022-03-01] MEDS: BALSAM PERU/CASTOR OIL 60 GM OINT...G. TP SCH (08:34)
[2022-03-01] MEDS: ENOXAPARIN SOD INJ 40 MG/0.4 ML SYR SC SCH (17:24)
[2022-03-01] MEDS: QUETIAPINE FUMARATE 25 MG TAB PO SCH (21:19)
[2022-03-01] MEDS: ACETAMINOPHEN 325 MG TAB PO PRN (21:19)
[2022-03-02] VITALS (7 sets, daily range): BP systolic 132–151; BP diastolic 66–78
[2022-03-02 06:03] LABS: BASOPHILS % 0.7 % (0.0-1.0); EOSINOPHILS # (AUTO) 0.2 (0.0-0.4); EOSINOPHILS % 3.6 % (0.0-6.0); HEMATOCRIT 36.7 % (38.2-49.6); HEMOGLOBIN 11.7 g/dL (14.0-18.0); LYMPHOCYTES # (AUTO) 1.6 (1.0-3.2); LYMPHOCYTES % 29.4 % (18.0-39.1); MEAN CORPUSCULAR HEMOGLOBIN 30.2 pg (28-32); MEAN CORPUSCULAR HGB CONC 31.9 g/dL (31-35); MEAN CORPUSCULAR VOLUME 94.8 fL (81-99); MONOCYTES # (AUTO) 0.6 (0.2-0.8); MONOCYTES % 10.9 % (4.4-11.3); NEUTROPHILS % 54.9 % (38.7-80.0); PLATELET COUNT 199 x10e3/uL (140-360); RED BLOOD COUNT 3.87 x10e6/uL (4.3-5.7)
[2022-03-02 06:27] LABS: ALBUMIN 2.8 g/dL (3.5-5.0); ALBUMIN/GLOBULIN RATIO 0.7 (0.8-2.0); ANION GAP 14.9 mmol/L (8-16); CREATININE, SERUM 1.1 mg/dL (0.72-1.25); MAGNESIUM 1.7 MG/DL (1.3-2.1); POTASSIUM 3.9 mmol/L (3.5-5.1)
[2022-03-02] MEDS: INSULIN LISPRO 100 UNIT/1 ML 3ML VIAL SQ SCH ×4 (07:30→21:00)
[2022-03-02] MEDS: FOLIC ACID 1 MG TAB PO SCH (08:41)
[2022-03-02] MEDS: DOCUSATE SODIUM 100 MG CAP PO SCH (08:41)
[2022-03-02] MEDS: SENNOSIDES 8.6 MG TAB PO SCH (08:41)
[2022-03-02] MEDS: BALSAM PERU/CASTOR OIL 60 GM OINT...G. TP SCH (09:00)
[2022-03-02] MEDS: ENOXAPARIN SOD INJ 40 MG/0.4 ML SYR SC SCH (16:30)
[2022-03-02] MEDS: QUETIAPINE FUMARATE 25 MG TAB PO SCH (21:43)
[2022-03-02] MEDS: ACETAMINOPHEN 325 MG TAB PO PRN (21:43)
[2022-03-03] VITALS: BP 125/52
[2022-03-03 04:00] VITALS: BP 117/65
[2022-03-03 07:49] VITALS: BP 147/77
[2022-03-03 09:02] VITALS: BP 147/77
[2022-03-03] MEDS: FOLIC ACID 1 MG TAB PO SCH (09:11)
[2022-03-03] MEDS: SENNOSIDES 8.6 MG TAB PO SCH (09:11)
[2022-03-03] MEDS: DOCUSATE SODIUM 100 MG CAP PO SCH (09:11)
== END 2022-03-03 11:17 | DRG 682 ==
LOC: ER 13:12 → ERHOLD 18:42 → MED/SURG2 23:11
PROVIDERS: ADMIT Internal Medicine; ATTEND Internal Medicine
DX: N17.0 Acute kidney failure with tubular necrosis (principal); G92.8 Other toxic encephalopathy; J69.0 Pneumonitis due to inhalation of food and vomit; E87.0 Hyperosmolality and hypernatremia; E86.0 Dehydration; D52.9 Folate deficiency anemia, unspecified; K70.30 Alcoholic cirrhosis of liver without ascites; E11.22 Type 2 diabetes mellitus with diabetic chronic kidney disease; F10.10 Alcohol abuse, uncomplicated; I12.9 Hypertensive chronic kidney disease with stage 1 through stage 4 chronic kidney disease, or unspecified chronic kidney disease; N18.9 Chronic kidney disease, unspecified; F10.11 Alcohol abuse, in remission; W19.XXXA Unspecified fall, initial encounter; Y92.129 Unspecified place in nursing home as the place of occurrence of the external cause; Z87.442 Personal history of urinary calculi; E66.9 Obesity, unspecified; N20.0 Calculus of kidney; E78.2 Mixed hyperlipidemia; Z68.38 Body mass index [BMI] 38.0-38.9, adult; Z87.891 Personal history of nicotine dependence; Z20.822 Contact with and (suspected) exposure to COVID-19; R13.10 Dysphagia, unspecified; T42.4X5A Adverse effect of benzodiazepines, initial encounter; D50.9 Iron deficiency anemia, unspecified
CPT/HCPCS: 0223U; 36415; 36600; 51700; 70450; 70551; 71045; 72125; 74230; 76705; 76770; 80048; 80053; 80307; 80320; 81001; 82140; 82150; 82550; 82553; 82607; 82728; 82746; 82805; 82948; 83036; 83540; 83605; 83690; 83735; 83880; 84443; 84466; 84484; 84550; 85025; 85610; 85730; 87040; 87086; 93005; 94799; 96361; 96372; 99251; 99284; J0696; J1650; J1756; J3475; J3480; J3486; J7030; J7050; J7070; J7799

== ENCOUNTER 2022-06-08 11:01 | Inpatient (IN) | payer MEDICARE ==
[~2022-06-08] VITALS: Ht 177.8 cm; Wt 122.5 kg
[2022-06-08] MEDS ORDERED: DEXTROSE 50% SYRINGE 50 ML IV ONE ×2 (11:32→11:33)
[2022-06-08 12:14] LABS: BASOPHILS % 0.5 % (0.0-1.0); EOSINOPHILS # (AUTO) 0.1 (0.0-0.4); EOSINOPHILS % 1.9 % (0.0-6.0); HEMATOCRIT 24.9 % (38.2-49.6); HEMOGLOBIN 7.4 g/dL (14.0-18.0); LYMPHOCYTES # (AUTO) 1.4 (1.0-3.2); LYMPHOCYTES % 18.8 % (18.0-39.1); MEAN CORPUSCULAR HEMOGLOBIN 28.6 pg (28-32); MEAN CORPUSCULAR HGB CONC 29.7 g/dL (31-35); MEAN CORPUSCULAR VOLUME 96.1 fL (81-99); MONOCYTES % 13.3 % (4.4-11.3); NEUTROPHILS # (AUTO) 4.8 (2.1-6.9); RED BLOOD COUNT 2.59 x10e6/uL (4.3-5.7); RED CELL DISTRIBUTION WIDTH 15.7 % (11.7-14.4)
[2022-06-08 12:17] LABS: PLATELET COUNT 260 x10e3/uL (140-360)
[2022-06-08 12:35] LABS: ALBUMIN 2.3 g/dL (3.5-5.0); ALBUMIN/GLOBULIN RATIO 0.5 (0.8-2.0); ANION GAP 12.3 mmol/L (8-16); CREATININE, SERUM 0.97 mg/dL (0.72-1.25); POTASSIUM 4.3 mmol/L (3.5-5.1)
[2022-06-08] MEDS ORDERED: FERROUS SULFATE PEG (12:38)
[2022-06-08] MEDS ORDERED: LIPITOR20 MG PEG (12:38)
[2022-06-08] MEDS ORDERED: HYDROXYZINE HCL50 MG PEG (12:38)
[2022-06-08] MEDS ORDERED: SENNA LAX8.6 MG PEG (12:38)
[2022-06-08] MEDS ORDERED: ASPIRIN81 MG PEG (12:38)
[2022-06-08] MEDS ORDERED: LACTULOSE20 GM/30 M PEG (12:38)
[2022-06-08] MEDS ORDERED: HALOPERIDOL1 MG PEG (12:38)
[2022-06-08] MEDS ORDERED: ACETAMINOPHEN325 M1 PEG (12:38)
[2022-06-08] MEDS ORDERED: DOCUSATE SODIU100 MG PEG (12:38)
[2022-06-08] MEDS ORDERED: CYMBALTA20 MG PEG (12:38)
[2022-06-08] MEDS ORDERED: FOLIC ACID-VIT1 EACH PEG (12:38)
[2022-06-08] MEDS ORDERED: ONDANSETRON ODT4 MG PEG (12:38)
[2022-06-08] MEDS ORDERED: MELATONIN3 MG PEG (12:38)
[2022-06-08] MEDS ORDERED: LEXAPRO20 MG PEG (12:38)
[2022-06-08] MEDS ORDERED: VALPROIC A250 MG/5 M PEG (12:38)
[2022-06-08] MEDS ORDERED: METOPROLOL SUCC25 MG PEG (12:38)
[2022-06-08] MEDS ORDERED: QUETIAPINE FUMA25 MG PEG (12:38)
[2022-06-08] MEDS ORDERED: ZESTRIL40 MG PEG (12:38)
[2022-06-08] MEDS ORDERED: ONDANSETRON HCL INJ 2MG/ML 2ML 2 MG/ML VIAL IV PRN (13:15)
[2022-06-08] MEDS: SODIUM CHLORIDE 0.9% 1000ML 1,000 ML IV SCH (13:26)
[2022-06-08] MEDS ORDERED: LIDOCAINE 1% 10 ML MULTIDOSE VIAL IJ ONE (14:03)
[2022-06-08] MEDS ORDERED: SODIUM CHLORIDE 0.9% 250ML 250 ML ONE (14:04)
[2022-06-08] MEDS ORDERED: IOPAMIDOL 300MG/ML 50ML INFUS..BTL IV ONE (14:04)
[2022-06-08 17:11] VITALS: BP 96/62
[2022-06-08 18:13] VITALS: BP 96/62
[2022-06-08 18:40] VITALS: BP 106/61
[2022-06-08] MEDS ORDERED: SODIUM CHLORIDE 0.9% 500ML 500 ML IV ONE (18:45)
[2022-06-08] MEDS ORDERED: DEXTROSE 50% SYRINGE 50 ML IV PRN (18:45)
[2022-06-08 20:00] VITALS: BP 93/49
[2022-06-08] MEDS: INSULIN LISPRO 100 UNIT/1 ML 3ML VIAL SQ SCH (21:00)
[2022-06-09] VITALS (7 sets, daily range): BP systolic 90–139; BP diastolic 50–78
[2022-06-09 00:08] LABS: FERRITIN 304.37 ng/mL (21.81-274.66)
[2022-06-09 05:44] LABS: ANION GAP 11.2 mmol/L (8-16); CREATININE, SERUM 0.98 mg/dL (0.72-1.25); POTASSIUM 4.2 mmol/L (3.5-5.1)
[2022-06-09] MEDS: SODIUM CHLORIDE 0.9% 1000ML 1,000 ML IV SCH (06:01)
[2022-06-09 06:23] LABS: BASOPHILS # (AUTO) 0.1 (0.0-0.1); BASOPHILS % 0.7 % (0.0-1.0); EOSINOPHILS # (AUTO) 0.1 (0.0-0.4); LYMPHOCYTES # (AUTO) 1.8 (1.0-3.2); LYMPHOCYTES % 25.7 % (18.0-39.1); MEAN CORPUSCULAR HEMOGLOBIN 28.4 pg (28-32); MEAN CORPUSCULAR HGB CONC 30.8 g/dL (31-35); MONOCYTES # (AUTO) 1.1 (0.2-0.8); MONOCYTES % 15.8 % (4.4-11.3); NEUTROPHILS # (AUTO) 3.8 (2.1-6.9); NEUTROPHILS % 55.1 % (38.7-80.0); PLATELET COUNT 256 x10e3/uL (140-360); RED BLOOD COUNT 2.15 x10e6/uL (4.3-5.7); RED CELL DISTRIBUTION WIDTH 15.9 % (11.7-14.4)
[2022-06-09 06:36] LABS: HEMATOCRIT 21.2 % (38.2-49.6); HEMOGLOBIN 6.1 g/dL (14.0-18.0)
[2022-06-09 06:37] LABS: MEAN CORPUSCULAR VOLUME 92.1 fL (81-99)
[2022-06-09] MEDS: INSULIN LISPRO 100 UNIT/1 ML 3ML VIAL SQ SCH ×4 (07:30→21:00)
[2022-06-09] MEDS ORDERED: SODIUM CHLORIDE 0.9% 250ML 250 ML IV ONE (08:00)
[2022-06-09] MEDS ORDERED: FUROSEMIDE INJ 10 MG/ML 2 ML VIAL IV ONE ×2 (08:00→15:30)
[2022-06-09] MEDS: IRON SUCROSE 100 MG in SODIUM CHLORIDE 0.9% 100 ML IV SCH (09:00)
[2022-06-09] MEDS ORDERED: SODIUM CHLORIDE 0.9% 250ML 250 ML ONE ×2 (11:46→11:51)
[2022-06-09] MEDS ORDERED: POVIDONE IODINE 0.05% 0.05 % ML PO ONE (12:45)
[2022-06-09] MEDS ORDERED: PROPOFOL IV EMULSION 10 MG/ML 20 ML VIAL ONE (12:45)
[2022-06-09] MEDS ORDERED: FENTANYL CITRATE/PF 100MCG/2 ML INJ ONE (13:16)
[2022-06-09] MEDS ORDERED: MIDAZOLAM HCL 2 MG/2 ML VIAL ONE (13:16)
[2022-06-09] MEDS: DEXTROSE 5%/0.45% SOD CHL 1,000 ML IV SCH (17:18)
[2022-06-10] VITALS (9 sets, daily range): BP systolic 120–142; BP diastolic 55–80
[2022-06-10] MEDS ORDERED: OLANZAPINE 10 MG VIAL IM ONE (04:15)
[2022-06-10] MEDS ORDERED: ZIPRASIDONE 20 MG VIAL IM ONE (04:30)
[2022-06-10 06:40] LABS: BASOPHILS % 0.5 % (0.0-1.0); EOSINOPHILS # (AUTO) 0.1 (0.0-0.4); EOSINOPHILS % 1.3 % (0.0-6.0); HEMATOCRIT 28.7 % (38.2-49.6); HEMOGLOBIN 9.1 g/dL (14.0-18.0); LYMPHOCYTES # (AUTO) 1.5 (1.0-3.2); MEAN CORPUSCULAR HEMOGLOBIN 27.7 pg (28-32); MEAN CORPUSCULAR HGB CONC 31.7 g/dL (31-35); MEAN CORPUSCULAR VOLUME 87.2 fL (81-99); MONOCYTES # (AUTO) 1.2 (0.2-0.8); NEUTROPHILS % 63.6 % (38.7-80.0); PLATELET COUNT 254 x10e3/uL (140-360); RED BLOOD COUNT 3.29 x10e6/uL (4.3-5.7); RED CELL DISTRIBUTION WIDTH 17.1 % (11.7-14.4)
[2022-06-10 07:06] LABS: ALBUMIN 2.2 g/dL (3.5-5.0); ALBUMIN/GLOBULIN RATIO 0.5 (0.8-2.0); ANION GAP 13.1 mmol/L (8-16); CALCIUM 8.5 mg/dL (8.4-10.2); CREATININE, SERUM 1.05 mg/dL (0.72-1.25); MAGNESIUM 1.8 MG/DL (1.3-2.1); POTASSIUM 4.1 mmol/L (3.5-5.1)
[2022-06-10] MEDS: DEXTROSE 5%/0.45% SOD CHL 1,000 ML IV SCH ×2 (07:30→20:39)
[2022-06-10] MEDS: INSULIN LISPRO 100 UNIT/1 ML 3ML VIAL SQ SCH ×4 (07:30→20:38)
[2022-06-10] MEDS: IRON SUCROSE 100 MG in SODIUM CHLORIDE 0.9% 100 ML IV SCH (09:00)
[2022-06-10] MEDS: COLLAGENASE OINTMENT 30 GM TUBE TP SCH (09:00)
[2022-06-10] MEDS ORDERED: ACETAMINOPHEN 325 MG TAB PO PRN (11:30)
[2022-06-10] MEDS: QUETIAPINE FUMARATE 25 MG TAB PEG SCH ×2 (11:43→20:40)
[2022-06-10] MEDS: LACTULOSE SYRUP 20 GM/30 ML UDC PEG SCH (17:15)
[2022-06-10 17:21] LABS: HEMATOCRIT 31.4 % (38.2-49.6); HEMOGLOBIN 9.1 g/dL (14.0-18.0)
[2022-06-10] MEDS: MELATONIN 5 MG TABLET PO SCH (20:40)
[2022-06-10] MEDS: ATORVASTATIN 40 MG TAB PEG SCH (20:40)
[2022-06-11] VITALS (8 sets, daily range): BP systolic 101–131; BP diastolic 55–70
[2022-06-11] MEDS: DEXTROSE 5%/0.45% SOD CHL 1,000 ML IV SCH ×2 (05:29→17:55)
[2022-06-11 06:30] LABS: BASOPHILS # (AUTO) 0.1 (0.0-0.1); BASOPHILS % 0.6 % (0.0-1.0); EOSINOPHILS # (AUTO) 0.1 (0.0-0.4); EOSINOPHILS % 1.3 % (0.0-6.0); HEMATOCRIT 30.2 % (38.2-49.6); LYMPHOCYTES % 20.8 % (18.0-39.1); MEAN CORPUSCULAR HEMOGLOBIN 28.1 pg (28-32); MEAN CORPUSCULAR HGB CONC 29.8 g/dL (31-35); MEAN CORPUSCULAR VOLUME 94.4 fL (81-99); MONOCYTES # (AUTO) 1.4 (0.2-0.8); NEUTROPHILS # (AUTO) 5.9 (2.1-6.9); NEUTROPHILS % 61.8 % (38.7-80.0); PLATELET COUNT 256 x10e3/uL (140-360); RED CELL DISTRIBUTION WIDTH 16.7 % (11.7-14.4)
[2022-06-11 06:48] LABS: ALBUMIN 2.2 g/dL (3.5-5.0); ALBUMIN/GLOBULIN RATIO 0.5 (0.8-2.0); ANION GAP 11.5 mmol/L (8-16); CALCIUM 8.3 mg/dL (8.4-10.2); CREATININE, SERUM 1.22 mg/dL (0.72-1.25); MAGNESIUM 1.8 MG/DL (1.3-2.1); POTASSIUM 4.5 mmol/L (3.5-5.1)
[2022-06-11] MEDS: INSULIN LISPRO 100 UNIT/1 ML 3ML VIAL SQ SCH ×4 (07:30→20:35)
[2022-06-11] MEDS: DULOXETINE HCL 20 MG DELAYED RELEASE PO SCH (08:57)
[2022-06-11] MEDS: SENNOSIDES 8.6 MG TAB PO SCH (08:58)
[2022-06-11] MEDS: ASPIRIN 81 MG CHEW TAB PEG SCH (08:59)
[2022-06-11] MEDS: ESCITALOPRAM OXALATE 10 MG TAB PEG SCH (08:59)
[2022-06-11] MEDS: LACTULOSE SYRUP 20 GM/30 ML UDC PEG SCH ×2 (08:59→16:10)
[2022-06-11] MEDS: METOPROLOL SUCCINATE 25 MG TAB XL PO SCH (09:00)
[2022-06-11] MEDS: QUETIAPINE FUMARATE 25 MG TAB PEG SCH ×2 (09:00→20:46)
[2022-06-11] MEDS: DOCUSATE SODIUM 100 MG CAP PO SCH (09:00)
[2022-06-11] MEDS ORDERED: HALOPERIDOL 1 MG TAB PEG SCH (09:00)
[2022-06-11] MEDS: IRON SUCROSE 100 MG in SODIUM CHLORIDE 0.9% 100 ML IV SCH (09:03)
[2022-06-11] MEDS: COLLAGENASE OINTMENT 30 GM TUBE TP SCH (09:21)
[2022-06-11] MEDS: VALPROATE 250MG/5ML ORAL LIQ 5ml GT SCH (11:04)
[2022-06-11] MEDS ORDERED: HALOPERIDOL 1 MG TAB PO PRN (17:30)
[2022-06-11] MEDS: ATORVASTATIN 40 MG TAB PEG SCH (20:46)
[2022-06-11] MEDS: MELATONIN 5 MG TABLET PO SCH (20:46)
[2022-06-12] VITALS (7 sets, daily range): BP systolic 100–126; BP diastolic 57–71
[2022-06-12 05:47] LABS: BASOPHILS # (AUTO) 0.1 (0.0-0.1); BASOPHILS % 0.7 % (0.0-1.0); EOSINOPHILS # (AUTO) 0.2 (0.0-0.4); EOSINOPHILS % 2.3 % (0.0-6.0); HEMATOCRIT 27.9 % (38.2-49.6); HEMOGLOBIN 8.9 g/dL (14.0-18.0); LYMPHOCYTES # (AUTO) 1.5 (1.0-3.2); LYMPHOCYTES % 15.7 % (18.0-39.1); MEAN CORPUSCULAR HEMOGLOBIN 28.6 pg (28-32); MEAN CORPUSCULAR HGB CONC 31.9 g/dL (31-35); MEAN CORPUSCULAR VOLUME 89.7 fL (81-99); MONOCYTES # (AUTO) 1.4 (0.2-0.8); MONOCYTES % 14.9 % (4.4-11.3); NEUTROPHILS # (AUTO) 6.2 (2.1-6.9); NEUTROPHILS % 65.8 % (38.7-80.0); PLATELET COUNT 224 x10e3/uL (140-360); RED BLOOD COUNT 3.11 x10e6/uL (4.3-5.7); RED CELL DISTRIBUTION WIDTH 16.6 % (11.7-14.4)
[2022-06-12] MEDS: DEXTROSE 5%/0.45% SOD CHL 1,000 ML IV SCH ×2 (06:16→21:01)
[2022-06-12] MEDS: INSULIN LISPRO 100 UNIT/1 ML 3ML VIAL SQ SCH ×4 (07:30→20:06)
[2022-06-12] MEDS: VALPROATE 250MG/5ML ORAL LIQ 5ml GT SCH (07:51)
[2022-06-12] MEDS: LACTULOSE SYRUP 20 GM/30 ML UDC PEG SCH ×2 (07:51→16:48)
[2022-06-12] MEDS: COLLAGENASE OINTMENT 30 GM TUBE TP SCH (07:51)
[2022-06-12] MEDS: DOCUSATE SODIUM 100 MG CAP PO SCH (07:52)
[2022-06-12] MEDS: ASPIRIN 81 MG CHEW TAB PEG SCH (07:52)
[2022-06-12] MEDS: SENNOSIDES 8.6 MG TAB PO SCH (07:52)
[2022-06-12] MEDS: QUETIAPINE FUMARATE 25 MG TAB PEG SCH ×2 (07:53→21:14)
[2022-06-12] MEDS: DULOXETINE HCL 20 MG DELAYED RELEASE PO SCH (07:53)
[2022-06-12] MEDS: ESCITALOPRAM OXALATE 10 MG TAB PEG SCH (07:53)
[2022-06-12] MEDS: METOPROLOL SUCCINATE 25 MG TAB XL PO SCH (07:54)
[2022-06-12] MEDS: IRON SUCROSE 100 MG in SODIUM CHLORIDE 0.9% 100 ML IV SCH (11:13)
[2022-06-12] MEDS: MELATONIN 5 MG TABLET PO SCH (21:00)
[2022-06-12] MEDS: ATORVASTATIN 40 MG TAB PEG SCH (21:01)
[2022-06-13] VITALS: BP 116/69
[2022-06-13 04:00] VITALS: BP 107/51
[2022-06-13] MEDS: INSULIN LISPRO 100 UNIT/1 ML 3ML VIAL SQ SCH ×2 (07:30→11:30)
[2022-06-13 07:38] VITALS: BP 103/51
[2022-06-13] MEDS: METOPROLOL SUCCINATE 25 MG TAB XL PO SCH (08:45)
[2022-06-13] MEDS: DOCUSATE SODIUM 100 MG CAP PO SCH (08:45)
[2022-06-13] MEDS: LACTULOSE SYRUP 20 GM/30 ML UDC PEG SCH (08:45)
[2022-06-13] MEDS: ESCITALOPRAM OXALATE 10 MG TAB PEG SCH (08:46)
[2022-06-13] MEDS: DULOXETINE HCL 20 MG DELAYED RELEASE PO SCH (08:46)
[2022-06-13] MEDS: ASPIRIN 81 MG CHEW TAB PEG SCH (08:46)
[2022-06-13] MEDS: QUETIAPINE FUMARATE 25 MG TAB PEG SCH (08:46)
[2022-06-13] MEDS: IRON SUCROSE 100 MG in SODIUM CHLORIDE 0.9% 100 ML IV SCH (08:47)
[2022-06-13] MEDS: SENNOSIDES 8.6 MG TAB PO SCH (08:53)
[2022-06-13] MEDS: COLLAGENASE OINTMENT 30 GM TUBE TP SCH (08:54)
[2022-06-13] MEDS ORDERED: ONDANSETRON HCL 4 MG ORAL DISINTEGRATING TAB PO PRN (10:45)
[2022-06-13 11:26] VITALS: BP 126/71
[2022-06-13 15:17] VITALS: BP 142/78
== END 2022-06-13 17:05 | DRG 393 ==
LOC: ER 11:08 → ERHOLD 13:14 → MED/SURG3 17:00 → OBSVTOIN 06-09 13:41
PROVIDERS: ADMIT Internal Medicine; ATTEND Internal Medicine
PROC: 30233N1 Transfusion of Nonautologous Red Blood Cells into Peripheral Vein, Percutaneous Approach (ICD-10-PCS; 2022-06-09)
PROC: 0DH67UZ Insertion of Feeding Device into Stomach, Via Natural or Artificial Opening (ICD-10-PCS; principal; 2022-06-09 13:46)
PROC: 0DB48ZX Excision of Esophagogastric Junction, Via Natural or Artificial Opening Endoscopic, Diagnostic (ICD-10-PCS; 2022-06-09 13:46)
DX: K94.23 Gastrostomy malfunction (principal); G93.41 Metabolic encephalopathy; I95.9 Hypotension, unspecified; R00.1 Bradycardia, unspecified; E66.9 Obesity, unspecified; E78.5 Hyperlipidemia, unspecified; E11.9 Type 2 diabetes mellitus without complications; F31.9 Bipolar disorder, unspecified; K20.90 Esophagitis, unspecified without bleeding; K31.89 Other diseases of stomach and duodenum; R53.81 Other malaise; R13.10 Dysphagia, unspecified; D50.9 Iron deficiency anemia, unspecified; D63.8 Anemia in other chronic diseases classified elsewhere; R45.1 Restlessness and agitation; K26.9 Duodenal ulcer, unspecified as acute or chronic, without hemorrhage or perforation; K29.70 Gastritis, unspecified, without bleeding; K44.9 Diaphragmatic hernia without obstruction or gangrene; F10.11 Alcohol abuse, in remission; I10 Essential (primary) hypertension; Z68.38 Body mass index [BMI] 38.0-38.9, adult; Z79.82 Long term (current) use of aspirin; Z79.899 Other long term (current) drug therapy; Z79.1 Long term (current) use of non-steroidal anti-inflammatories (NSAID); Z87.440 Personal history of urinary (tract) infections
CPT/HCPCS: 36415; 43239; 43246; 49465; 74470; 80048; 80053; 82607; 82728; 82746; 82948; 83540; 83735; 84466; 85014; 85018; 85025; 85045; 86850; 86900; 86920; 88305; 99252; 99284; G0378; J1756; J1940; J2250; J3010; J3486; J7030; J7050; J7799; P9016

== ENCOUNTER 2022-06-14 02:38 | Emergency (ER) | payer MEDICARE ==
[~2022-06-14] VITALS: Ht 330.2 cm; Wt 122.5 kg
[~2022-06-14 02:38] MED LIST changes: +ACETAMINOPHEN325 M1 PEG; +ASPIRIN81 MG PEG; +CYMBALTA20 MG PEG; +DOCUSATE SODIU100 MG PEG; +FERROUS SULFATE PEG; +FOLIC ACID-VIT1 EACH PEG; +HALOPERIDOL1 MG PEG; +HYDROXYZINE HCL50 MG PEG; +LACTULOSE20 GM/30 M PEG; +LEXAPRO20 MG PEG; +LIPITOR20 MG PEG; +MELATONIN3 MG PEG; +METOPROLOL SUCC25 MG PEG; +ONDANSETRON ODT4 MG PEG; +QUETIAPINE FUMA25 MG PEG; +SENNA LAX8.6 MG PEG; +VALPROIC A250 MG/5 M PEG; +ZESTRIL40 MG PEG
== END 2022-06-14 02:58 ==
LOC: ER 02:53
DX: Z43.1 Encounter for attention to gastrostomy (principal); I10 Essential (primary) hypertension; E11.9 Type 2 diabetes mellitus without complications
CPT/HCPCS: 99282

== ENCOUNTER 2022-06-14 12:53 | Inpatient (IN) | payer MEDICARE ==
[~2022-06-14] VITALS: Ht 177.8 cm; Wt 81.2 kg
[2022-06-14] MEDS ORDERED: DIATRIZOATE MEGL/DIATRIZOA SOD 30 ML BTL PO ONE (14:06)
[2022-06-14] MEDS ORDERED: Morphine 4mg INJECTION 4 MG/ML INJ IV PRN (15:45)
[2022-06-14] MEDS ORDERED: SODIUM CHLORIDE 0.9% 1000ML 1,000 ML IV SCH (15:45)
[2022-06-14] MEDS ORDERED: ONDANSETRON HCL INJ 2MG/ML 2ML 2 MG/ML VIAL IV PRN (15:45)
[2022-06-14 16:19] LABS: BASOPHILS % 0.3 % (0.0-1.0); EOSINOPHILS # (AUTO) 0.1 (0.0-0.4); EOSINOPHILS % 0.8 % (0.0-6.0); HEMATOCRIT 34.7 % (38.2-49.6); HEMOGLOBIN 10.3 g/dL (14.0-18.0); LYMPHOCYTES # (AUTO) 1.7 (1.0-3.2); LYMPHOCYTES % 14.1 % (18.0-39.1); MEAN CORPUSCULAR HEMOGLOBIN 28.7 pg (28-32); MEAN CORPUSCULAR HGB CONC 29.7 g/dL (31-35); MEAN CORPUSCULAR VOLUME 96.7 fL (81-99); MONOCYTES # (AUTO) 1.3 (0.2-0.8); NEUTROPHILS # (AUTO) 8.5 (2.1-6.9); NEUTROPHILS % 72.9 % (38.7-80.0); PLATELET COUNT 283 x10e3/uL (140-360); RED BLOOD COUNT 3.59 x10e6/uL (4.3-5.7); RED CELL DISTRIBUTION WIDTH 16.3 % (11.7-14.4)
[2022-06-14 16:30] LABS: INR 1.06
[2022-06-14 16:40] LABS: ALBUMIN 2.6 g/dL (3.5-5.0); ALBUMIN/GLOBULIN RATIO 0.5 (0.8-2.0); ANION GAP 15.2 mmol/L (8-16); CALCIUM 9.3 mg/dL (8.4-10.2); CREATININE, SERUM 1.25 mg/dL (0.72-1.25); POTASSIUM 5.2 mmol/L (3.5-5.1)
[2022-06-14 18:36] VITALS: BP 99/74
[2022-06-14 20:51] VITALS: BP 103/62
[2022-06-14 21:36] VITALS: BP 103/62
[2022-06-14 21:55] VITALS: BP 103/62
[2022-06-14] MEDS: DEXTROSE 5%/0.45% SOD CHL 1,000 ML IV SCH (23:22)
[2022-06-15] VITALS (8 sets, daily range): BP systolic 103–135; BP diastolic 51–71
[2022-06-15] MEDS ORDERED: METRONIDAZOLE 500MG/NS 100ML 100 ML IV STA (01:34)
[2022-06-15] MEDS ORDERED: LEVOFLOXACIN 500MG/D5W 100ML 100 ML IV ONE (01:45)
[2022-06-15] MEDS: METRONIDAZOLE 500MG/NS 100ML 100 ML IV SCH ×3 (05:53→17:19)
[2022-06-15 06:42] LABS: BASOPHILS % 0.4 % (0.0-1.0); EOSINOPHILS # (AUTO) 0.1 (0.0-0.4); HEMATOCRIT 27.2 % (38.2-49.6); LYMPHOCYTES # (AUTO) 1.4 (1.0-3.2); LYMPHOCYTES % 14.7 % (18.0-39.1); MEAN CORPUSCULAR HEMOGLOBIN 28.3 pg (28-32); MEAN CORPUSCULAR HGB CONC 29.4 g/dL (31-35); MEAN CORPUSCULAR VOLUME 96.1 fL (81-99); MONOCYTES # (AUTO) 1.3 (0.2-0.8); MONOCYTES % 13.3 % (4.4-11.3); NEUTROPHILS # (AUTO) 6.8 (2.1-6.9); NEUTROPHILS % 69.9 % (38.7-80.0); PLATELET COUNT 249 x10e3/uL (140-360); RED BLOOD COUNT 2.83 x10e6/uL (4.3-5.7); RED CELL DISTRIBUTION WIDTH 16.2 % (11.7-14.4)
[2022-06-15 07:17] LABS: ALBUMIN/GLOBULIN RATIO 0.5 (0.8-2.0); ANION GAP 12.5 mmol/L (8-16); CALCIUM 8.6 mg/dL (8.4-10.2); CREATININE, SERUM 1.19 mg/dL (0.72-1.25); POTASSIUM 4.5 mmol/L (3.5-5.1)
[2022-06-15] MEDS ORDERED: DEXTROSE 50% SYRINGE 50 ML IV PRN (08:45)
[2022-06-15] MEDS ORDERED: HYDRALAZINE HCL 20 MG/ML VIAL IV PRN (08:45)
[2022-06-15] MEDS: DEXTROSE 5%/0.45% SOD CHL 1,000 ML IV SCH ×2 (10:19→17:19)
[2022-06-15] MEDS: INSULIN LISPRO 100 UNIT/1 ML 3ML VIAL SQ SCH ×3 (11:30→20:29)
[2022-06-15] MEDS ORDERED: LIDOCAINE HCL 2% LOCAL INJ 5 ML SDV VIAL INJ ONE (13:08)
[2022-06-15] MEDS ORDERED: POVIDONE IODINE 0.05% 0.05 % ML PO ONE (13:08)
[2022-06-15] MEDS: LEVOFLOXACIN 500MG/D5W 100ML 100 ML IV SCH (20:29)
[2022-06-16] VITALS (9 sets, daily range): BP systolic 106–136; BP diastolic 52–71
[2022-06-16] MEDS: METRONIDAZOLE 500MG/NS 100ML 100 ML IV SCH ×4 (00:27→17:50)
[2022-06-16] MEDS: DEXTROSE 5%/0.45% SOD CHL 1,000 ML IV SCH ×4 (00:27→23:15)
[2022-06-16 05:52] LABS: BASOPHILS % 0.3 % (0.0-1.0); EOSINOPHILS # (AUTO) 0.1 (0.0-0.4); EOSINOPHILS % 0.8 % (0.0-6.0); HEMATOCRIT 27.9 % (38.2-49.6); HEMOGLOBIN 8.2 g/dL (14.0-18.0); LYMPHOCYTES # (AUTO) 1.3 (1.0-3.2); LYMPHOCYTES % 12.8 % (18.0-39.1); MEAN CORPUSCULAR HGB CONC 29.4 g/dL (31-35); MEAN CORPUSCULAR VOLUME 95.2 fL (81-99); MONOCYTES # (AUTO) 1.5 (0.2-0.8); MONOCYTES % 15.2 % (4.4-11.3); NEUTROPHILS # (AUTO) 7.1 (2.1-6.9); NEUTROPHILS % 70.2 % (38.7-80.0); PLATELET COUNT 251 x10e3/uL (140-360); RED BLOOD COUNT 2.93 x10e6/uL (4.3-5.7); RED CELL DISTRIBUTION WIDTH 15.9 % (11.7-14.4)
[2022-06-16 06:12] LABS: ANION GAP 13.1 mmol/L (8-16); CALCIUM 8.6 mg/dL (8.4-10.2); CREATININE, SERUM 1.16 mg/dL (0.72-1.25); POTASSIUM 4.1 mmol/L (3.5-5.1)
[2022-06-16] MEDS: INSULIN LISPRO 100 UNIT/1 ML 3ML VIAL SQ SCH ×4 (07:30→21:00)
[2022-06-16] MEDS: COLLAGENASE OINTMENT 30 GM TUBE TP SCH (10:52)
[2022-06-16] MEDS ORDERED: ZIPRASIDONE 20 MG VIAL IM ONE (18:15)
[2022-06-16] MEDS ORDERED: WATER STERILE 10 ML VIAL INJ PRN (18:30)
[2022-06-16] MEDS: LEVOFLOXACIN 500MG/D5W 100ML 100 ML IV SCH (22:53)
[2022-06-17] MEDS: METRONIDAZOLE 500MG/NS 100ML 100 ML IV SCH ×5 (01:08→23:04)
[2022-06-17 05:17] VITALS: BP 126/66
[2022-06-17] MEDS: DEXTROSE 5%/0.45% SOD CHL 1,000 ML IV SCH ×2 (07:15→17:28)
[2022-06-17] MEDS: INSULIN LISPRO 100 UNIT/1 ML 3ML VIAL SQ SCH ×4 (07:30→21:00)
[2022-06-17 08:30] VITALS: BP 103/54
[2022-06-17 09:33] VITALS: BP 103/54
[2022-06-17] MEDS: COLLAGENASE OINTMENT 30 GM TUBE TP SCH (09:54)
[2022-06-17 13:27] VITALS: BP 111/61
[2022-06-17 16:56] VITALS: BP 103/66
[2022-06-17 20:00] VITALS: BP 120/49
[2022-06-17] MEDS: LEVOFLOXACIN 500MG/D5W 100ML 100 ML IV SCH (21:57)
[2022-06-18] VITALS (8 sets, daily range): BP systolic 104–132; BP diastolic 61–78
[2022-06-18] MEDS: OLANZAPINE 10 MG VIAL IM PRN ×2 (01:54→17:25)
[2022-06-18] MEDS: METRONIDAZOLE 500MG/NS 100ML 100 ML IV SCH ×3 (05:49→17:25)
[2022-06-18] MEDS: DEXTROSE 5%/0.45% SOD CHL 1,000 ML IV SCH ×3 (05:49→17:36)
[2022-06-18] MEDS: INSULIN LISPRO 100 UNIT/1 ML 3ML VIAL SQ SCH ×4 (07:30→21:00)
[2022-06-18] MEDS: COLLAGENASE OINTMENT 30 GM TUBE TP SCH (09:42)
[2022-06-18] MEDS: LEVOFLOXACIN 500MG/D5W 100ML 100 ML IV SCH (20:24)
[2022-06-19] VITALS (8 sets, daily range): BP systolic 112–148; BP diastolic 64–81
[2022-06-19] MEDS: METRONIDAZOLE 500MG/NS 100ML 100 ML IV SCH ×4 (00:14→18:17)
[2022-06-19] MEDS: DEXTROSE 5%/0.45% SOD CHL 1,000 ML IV SCH ×3 (05:27→21:06)
[2022-06-19] MEDS: INSULIN LISPRO 100 UNIT/1 ML 3ML VIAL SQ SCH ×4 (07:30→21:00)
[2022-06-19] MEDS: COLLAGENASE OINTMENT 30 GM TUBE TP SCH (14:37)
[2022-06-19] MEDS: LEVOFLOXACIN 500MG/D5W 100ML 100 ML IV SCH (21:06)
[2022-06-20] MEDS: METRONIDAZOLE 500MG/NS 100ML 100 ML IV SCH ×2 (00:09→04:21)
[2022-06-20] MEDS: DEXTROSE 5%/0.45% SOD CHL 1,000 ML IV SCH ×2 (00:11→07:48)
[2022-06-20 00:50] VITALS: BP 121/68
[2022-06-20 04:00] VITALS: BP 128/69
[2022-06-20 06:03] LABS: BASOPHILS # (AUTO) 0.1 (0.0-0.1); BASOPHILS % 0.6 % (0.0-1.0); EOSINOPHILS # (AUTO) 0.1 (0.0-0.4); EOSINOPHILS % 0.9 % (0.0-6.0); HEMATOCRIT 26.3 % (38.2-49.6); HEMOGLOBIN 7.7 g/dL (14.0-18.0); LYMPHOCYTES # (AUTO) 1.8 (1.0-3.2); MEAN CORPUSCULAR HEMOGLOBIN 28.2 pg (28-32); MEAN CORPUSCULAR HGB CONC 29.3 g/dL (31-35); MEAN CORPUSCULAR VOLUME 96.3 fL (81-99); MONOCYTES # (AUTO) 1.1 (0.2-0.8); MONOCYTES % 13.3 % (4.4-11.3); NEUTROPHILS # (AUTO) 5.4 (2.1-6.9); NEUTROPHILS % 63.2 % (38.7-80.0); RED BLOOD COUNT 2.73 x10e6/uL (4.3-5.7); RED CELL DISTRIBUTION WIDTH 15.9 % (11.7-14.4)
[2022-06-20 06:18] LABS: PLATELET COUNT 284 x10e3/uL (140-360)
[2022-06-20 06:31] LABS: ALBUMIN 1.9 g/dL (3.5-5.0); ALBUMIN/GLOBULIN RATIO 0.5 (0.8-2.0); ANION GAP 10.2 mmol/L (8-16); CALCIUM 7.8 mg/dL (8.4-10.2); CREATININE, SERUM 1.09 mg/dL (0.72-1.25); MAGNESIUM 1.5 MG/DL (1.3-2.1); POTASSIUM 3.2 mmol/L (3.5-5.1)
[2022-06-20] MEDS: INSULIN LISPRO 100 UNIT/1 ML 3ML VIAL SQ SCH ×2 (07:30→11:24)
[2022-06-20 07:37] VITALS: BP 146/71
[2022-06-20 08:21] VITALS: BP 146/71
[2022-06-20] MEDS ORDERED: CIPRO500 MG PO (08:31)
[2022-06-20] MEDS ORDERED: METRONIDAZOLE500 MG PO (08:31)
[2022-06-20] MEDS: COLLAGENASE OINTMENT 30 GM TUBE TP SCH (09:08)
[2022-06-20] MEDS ORDERED: KCL 20 MEQ PACKET/ ORAL SOLN PO ONE (09:30)
[2022-06-20] MEDS ORDERED: ONDANSETRON HCL 4 MG ORAL DISINTEGRATING TAB PO PRN (10:45)
[2022-06-20 11:23] VITALS: BP 143/69
[2022-06-20] MEDS ORDERED: LEVOFLOXACIN 500 MG TAB PO SCH (21:00)
== END 2022-06-20 12:38 | DRG 919 ==
LOC: ER 13:03 → ERHOLD 15:36 → MED/SURG3 18:17 → OBSVTOIN 06-16 09:21
PROVIDERS: ADMIT Internal Medicine; ATTEND Internal Medicine
PROC: 0DH63UZ Insertion of Feeding Device into Stomach, Percutaneous Approach (ICD-10-PCS; principal; 2022-06-15 16:28)
DX: T85.528A Displacement of other gastrointestinal prosthetic devices, implants and grafts, initial encounter (principal); U07.1 COVID-19; D63.8 Anemia in other chronic diseases classified elsewhere; E78.2 Mixed hyperlipidemia; I10 Essential (primary) hypertension; F10.11 Alcohol abuse, in remission; Y73.2 Prosthetic and other implants, materials and accessory gastroenterology and urology devices associated with adverse incidents; F31.9 Bipolar disorder, unspecified; K44.9 Diaphragmatic hernia without obstruction or gangrene; K29.70 Gastritis, unspecified, without bleeding; E11.649 Type 2 diabetes mellitus with hypoglycemia without coma; R13.12 Dysphagia, oropharyngeal phase; Z79.82 Long term (current) use of aspirin; Z59.6 Low income
CPT/HCPCS: 36415; 43246; 74018; 74176; 74230; 80048; 80053; 82948; 83735; 85025; 85610; 94799; 99252; 99284; G0378; J1956; J2001; J2270; J7030; Q9963